=== PATIENT | female | born 1970 | race African-American/Black ===

== ENCOUNTER 2016-12-03 06:32 | Emergency (ER) | payer OTHER ==
[~2016-12-03] VITALS: Ht 172.7 cm; Wt 116.1 kg
[~2016-12-03 06:32] MED LIST: DONNATAL TABS1 TAB PO; NORVASC 5MG TAB5 MG PO; NORVASC10 M1 PO; PERCOCET 325 MG1 TA2 PO; ROXICODONE5 MG PO; TRAMADOL HCL50 M1 PO; TRAMADOL50 MG PO; ZOFRAN ODT4 M1 SL; ZOFRAN ODT4 MG SL
--- NOTE | 2016-12-03 07:17 | ED GI/GU/ABDOMINAL COMPLAINT ---
History of Present Illness General Chief Complaint: Abdominal Pain/Flank Pain Stated Complaint: LT FLANK PAIN,+V Source: patient, old records Exam Limitations: no limitations Vital Signs & Intake/Output Vital Signs & Intake/Output Vital Signs Date Time Temp Pulse Resp B/P B/P Pulse O2 O2 Flow FiO2 Mean Ox Delivery Rate 12/03 0738 Room Air Room Air 12/03 0647 98.6 85 16 148/83 98 Room Air Allergies Coded Allergies: lisinopril (Intermediate, renal failure 07/09/16) NSAIDS (Non-Steroidal Anti-Inflamma (Severe, VOMITING, VIOLENTLY ILL 07/06/16) Reconcile Medications Amlodipine Besylate (Norvasc) 10 MG TABLET 1 TAB PO DAILY Hypertension Tramadol HCl 50 MG TABLET 1 TAB PO Q8P PRN Severe pain Please follow up with PCP Triage Note: 46yo FEMALE TO TRIAGE W/CO LLQ PAIN SINCE TUESDAY. PAIN =SHARP AND CONSTANT SINCE TUE. HX OF OVARIAN CYSTS. STTES SOME VOMITING YESTERDAY Triage Nurses Notes Reviewed? yes ? N Is pt currently ? No HPI: Patient presents with left lower quadrant pain that radiates to her left lower back since Tuesday. The pain is been intermittent since Tuesday however this morning he became constant. Pain is sharp and stabbing in nature. Positive nausea and vomiting. The pain is 10 out of 10. There are no aggravating or mitigating factors. Similar symptoms in the past and she is diagnosed with ovarian cysts. Past History Travel History Traveled to [place] past 21 day No Medical History Any Pertinent Medical History? 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 No Review of Systems Review of Systems Constitutional: Reports: no symptoms. EENTM: Reports: no symptoms. Respiratory: Reports: no symptoms. Cardiovascular: Reports: no symptoms. GI: Reports: see HPI, abdominal pain, nausea, vomiting. Genitourinary: Reports: no symptoms. Musculoskeletal: Reports: see HPI, back pain. Skin: Reports: no symptoms. Neurological/Psychological: Reports: no symptoms. Hematologic/Endocrine: Reports: no symptoms. Immunologic/Allergic: Reports: no symptoms. All Other Systems: Reviewed and Negative Physical Exam Physical Exam General Appearance: well developed/nourished, alert, awake, anxious, moderate distress Head: atraumatic, normal appearance Eyes: Bilateral: PERRL, EOMI. Ears, Nose, Throat, Mouth: hearing grossly normal, DRY MUCUS MEMBRANES Neck: normal inspection, supple, full range of motion Respiratory: normal breath sounds, chest non-tender, no respiratory distress, lungs clear Cardiovascular: regular rate/rhythm, normal peripheral pulses Gastrointestinal: normal bowel sounds, soft, no organomegaly, tenderness (LLQ) Back: NO CVA TENDERNESS Extremities: normal range of motion Neurologic/Psych: no motor/sensory deficits, awake, alert, oriented x 3, normal gait, normal mood/affect Skin: intact, normal color, warm/dry Core Measures ACS in differential dx? No Severe Sepsis Present: No Septic Shock Present: No Progress Differential Diagnosis: ovarian cyst, ovarian torsion, UTI/pyelo Plan of Care: Orders Procedure Date/time Status URINE 12/03 0650 Complete URINALYSIS 12/03 0650 Complete Current Medications Sig/Shayan Start time Last Medication Dose Stop Time Status Admin Diphenhydramine HCl 25 MG ONCE ONE 12/03 0915 UNVr (Benadryl) 12/03 0916 Laboratory Tests 12/03/16 0655: Urine Color YEL, Urine Clarity CLEAR, Urine pH 6.0, Ur Specific [place] >= 1.030 , Urine Protein 30 H, Urine Ketones 15 H, Urine Nitrite NEG, Urine Bilirubin NEG@ICTO, Urine Urobilinogen 0.2, Ur Leukocyte Esterase NEG, Ur Microscopic SEDIMENT EXAMINED, Urine RBC 1-3, Urine WBC RARE, Ur Epithelial Cells RARE, Urine Bacteria FEW H, Urine Mucus MANY H, Urine Hemoglobin SMALL H, Urine Glucose NEG, Urine Test NEGATIVE Diagnostic Imaging: Viewed by Me: Ultrasound. Discussed w/RAD: Ultrasound. Radiology Impression: PATIENT: MINAL CHEN PRESENT AGE: 46 PATIENT ACCOUNT NO: [id number] : 72 LOCATION: [facility] ORDERING PHYSICIAN: ALLIE HULL MD SERVICE DATE: 12/03/16 EXAM TYPE: US - US-TRANSVAGINAL EXAMINATION: US TRANSVAGINAL CLINICAL INFORMATION: Severe left adnexal pain, rule out ovarian torsion COMPARISON: 07/06/2016 TECHNIQUE: Sonographic evaluation of the pelvis was performed transabdominally and transvaginally. FINDINGS: Patient is status post hysterectomy (2006). A subcentimeter nabothian cyst is noted in the cervix. A small amount of fluid is also seen in the cervix. The right ovary measures 3.2 x 2.6 x 2.7 cm (volume 12.0 mL). Doppler evaluation demonstrates normal-appearing flow in the right ovary. There are 2 right ovarian cysts identified. One of these measures 2.7 x 2.5 x 2.3 cm and partially contains echogenic material. The second cyst measures 1.6 x 1.4 x 1.7 cm and has a more simple appearance. The left ovary measures 2.4 x 1.7 x 1.8 cm (volume 3.7 cm). Doppler evaluation demonstrated normal appearing flow in the left ovary. There is suggestion of a complex cyst in the left ovary measuring less than 2 cm in diameter. IMPRESSION: 1. No sonographic findings of ovarian torsion. Suggestion of a complex left ovarian cyst measuring less than 2 cm; attention on follow-up is recommended. 2. Right ovary contains 2 cysts, one of which is partially complex. Sonographic follow-up in 6-8 weeks is advised to assess for resolution. 3. Small amount of fluid in the cervix. Subcentimeter nabothian cysts. DICTATED BY: DAR VARNER MD DATE/TIME DICTATED:12/03/16857 PUBLICATIONS WRITER:YOGI DATE/TIME TRANSCRIBED:12/03/16857 CONFIDENTIAL, DO NOT COPY WITHOUT APPROPRIATE AUTHORIZATION. <Electronically signed in Other Vendor System> SIGNED BY: DAR VARNER MD 12/03/16 09 Initial ED EKG: none Comments: Pain returned after the ultrasound. Patient will be given an additional dose of Dilaudid. Departure Departure Disposition: HOME OR SELF CARE Condition: Stable Clinical Impression Primary Impression: Left ovarian cyst Referrals: GLORIA WILLIAM,CECIL Cristina (PCP/Family) TRENA WILLIAM,ARIEL Additional Instructions: FOLLOW UP WITH DR. ALBRECHT RETURN FOR ANY CONCERNS Departure Forms: Customer Survey General Discharge Information Prescriptions: Current Visit Scripts Hydromorphone HCl (Dilaudid) 1 TAB PO Q6P PRN PAIN #20 TAB
--- NOTE | 2016-12-03 09:05 | ULTRASOUND REPORT ---
EXAMINATION: US TRANSVAGINAL CLINICAL INFORMATION: Severe left adnexal pain, rule out ovarian torsion COMPARISON: 07/06/2016 TECHNIQUE: Sonographic evaluation of the pelvis was performed transabdominally and transvaginally. FINDINGS: Patient is status post hysterectomy (2006). A subcentimeter nabothian cyst is noted in the cervix. A small amount of fluid is also seen in the cervix. The right ovary measures 3.2 x 2.6 x 2.7 cm (volume 12.0 mL). Doppler evaluation demonstrates normal-appearing flow in the right ovary. There are 2 right ovarian cysts identified. One of these measures 2.7 x 2.5 x 2.3 cm and partially contains echogenic material. The second cyst measures 1.6 x 1.4 x 1.7 cm and has a more simple appearance. The left ovary measures 2.4 x 1.7 x 1.8 cm (volume 3.7 cm). Doppler evaluation demonstrated normal appearing flow in the left ovary. There is suggestion of a complex cyst in the left ovary measuring less than 2 cm in diameter. IMPRESSION: 1. No sonographic findings of ovarian torsion. Suggestion of a complex left ovarian cyst measuring less than 2 cm; attention on follow-up is recommended. 2. Right ovary contains 2 cysts, one of which is partially complex. Sonographic follow-up in 6-8 weeks is advised to assess for resolution. 3. Small amount of fluid in the cervix. Subcentimeter nabothian cysts.
[2016-12-03 09:14] VITALS: BP 164/98
[2016-12-03] MEDS ORDERED: DILAUDID2 M1 PO (09:14)
== END 2016-12-03 09:49 ==
LOC: ERH 06:32
DX: N83.202 Unspecified ovarian cyst, left side (principal)
CPT/HCPCS: 81001; 81025; 96361; 96374; 96375; 96376; J1200

== ENCOUNTER 2017-07-26 11:43 | Emergency (ER) | payer OTHER ==
[~2017-07-26] VITALS: Ht 172.7 cm; Wt 124.7 kg
[~2017-07-26 11:43] MED LIST changes: +DILAUDID2 M1 PO
--- NOTE | 2017-07-26 12:06 | ED GI/GU/ABDOMINAL COMPLAINT ---
History of Present Illness General Chief Complaint: Abdominal Pain/Flank Pain Stated Complaint: ABD PAIN+N Source: patient, old records Exam Limitations: no limitations Vital Signs & Intake/Output Vital Signs & Intake/Output ED Intake and Output 07/27 0000 07/26 1200 Intake Total 1000 Output Total Balance 1000 Intake, IV 1000 Patient 275 lb Weight Weight Reported by Patient Measurement Method Allergies Coded Allergies: lisinopril (Intermediate, renal failure 07/09/16) NSAIDS (Non-Steroidal Anti-Inflamma (Severe, VOMITING, VIOLENTLY ILL 07/06/16) Reconcile Medications Amlodipine Besylate (Norvasc) 10 MG TABLET 1 TAB PO DAILY Hypertension Hydromorphone HCl (Dilaudid) 2 MG TABLET 1 TAB PO BIDP PRN pain Hydromorphone HCl (Dilaudid) 2 MG TABLET 1 TAB PO Q6P PRN PAIN Ondansetron (Zofran Odt) 4 MG TAB.RAPDIS 1 TAB SL TID PRN nausea Tramadol HCl 50 MG TABLET 1 TAB PO Q8P PRN Severe pain Please follow up with PCP Triage Note: PT TO ED C/O ABD PAIN ON AND OFF X 1 WEEK. STARTED VOMITING THIS AM. ACTIVELY VOMITING IN TRIAGE. Triage Nurses Notes Reviewed? yes ? n Is pt currently ? No Onset: Abrupt Duration: week(s): (1), constant Timing: recent history Quality/Severity: moderate, sharpness, stabbing Severity Numbers: 10 Location: generalized abdomen Radiation: no radiation Activities at Onset: none Prior Abdominal Problems: similar symptoms No Modifying Factors: none Associated Symptoms: denies HPI: 47 year old female with history of ovarian cyst, HTN, anxiety, chronic abdominal pain presents to the ER for evaluation complaining of 10 out of 10 sharp severe nonradiating abdominal pain for the past 1 week and she has not sought care for the symptoms until today secondary to nausea and vomiting. Patient was previously on tramadol for chronic pain which she states she has not had. She denies hematemesis diarrhea, no sick contacts no chest pain no back pain no urinary urgency frequency dysuria. She is not taken anything for her symptoms today.. The patient states she's been worked up for this pain in the past with no known cause identified her history is significant for cholecystectomy and ovarian cyst removal and . On my evaluation patient is stating that the only thing that works for her pain is IV Dilaudid. (Luis Alberto Paul) Past History Travel History Traveled to [place] past 21 day No Medical History Any Pertinent Medical History? 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 No (Luis Alberto Paul) Review of Systems Review of Systems Constitutional: Reports: see HPI. Comments Review of systems: See HPI, All other systems negative. Constitutional, no chills no fever, HEENT: no sore throat no congestion Cardiovascular: No chest pain Skin: no rashes, no change in skin Respiratory: No dyspnea no cough no sputum GI: nausea vomiting, no diarrhea, no bloating/constipation : No dysuria No hematuria, no frequency Muscle skeletal: No joint pain, no back pain, no neck pain, Neurologic: , no headache Heme/endocrine: No bruising Immunology: No lymphadenopathy (Luis Alberto Paul) Physical Exam Physical Exam General Appearance: well developed/nourished, alert, awake, diaphoretic Gastrointestinal: soft, tenderness Comments: Well-developed well-nourished person in no acute distress HEENT: Normal EENT exam; PERRL, EOMI, HEAD is atraumatic. moist mucous membranes. Neck: Supple, normal range of motion Back: Nontender, no CVA tenderness. Full range of motion Cardiovascular: Regular rate and rhythms no murmurs rubs Respiratory: No respiratory distress. Patient speaking in full complete sentences. Breath sounds clear to auscultation bilaterally: NO W/R/R Abdomen: Soft, diffuse tenderness, nondistended, no appreciable organomegaly. Normal bowel sounds. No rebound/guarding Extremity: No edema, full range of motion of extremities Neuro: Alert oriented x3, motor sensory normal,There were no obvious focal neurologic abnormalities. Skin: No appreciable rash on exposed skin, skin is warm and dry. Psych: Mood and affect is normal, memory and judgment is normal. Core Measures ACS in differential dx? No Sepsis Present: No Sepsis Focused Exam Completed? No (Charlette CANO,Luis Alberto) Progress Differential Diagnosis: bowel obstruction, colon cancer, inflamm bowel dis, intrauterine , ovarian cyst, peptic ulcer, PUD/GERD, SBO, threatened AB Plan of Care: Orders Procedure Date/time Status URINALYSIS 07/26 1209 Active LIPASE 07/26 1147 Complete HUMAN BETA HCG SCREEN 07/26 1147 Complete COMPREHENSIVE METABOLIC PANEL 07/26 1147 Complete CBC WITHOUT DIFFERENTIAL 07/26 1147 Complete Current Medications Sig/Shayan Start time Last Medication Dose Stop Time Status Admin Hydromorphone HCl 0.5 MG ONCE ONE 07/26 1415 CAN (Dilaudid) 07/26 1416 Laboratory Tests 07/26/17 1310: Anion Gap 13, Estimated GFR > 60, BUN/Creatinine Ratio 22.2, Glucose 108 H, Calcium 10.3 H, Total Bilirubin 0.5, AST 33, ALT 40, Alkaline Phosphatase 91, Total Protein 8.2, Albumin 4.6, Globulin 3.6, Albumin/Globulin Ratio 1.3, Lipase 116, Total Beta HCG NEGATIVE, CBC w Diff NO MAN DIFF REQ, RBC 5.21, MCV 89.7, MCH 29.3, RDW 14.1, MPV 9.6, Gran % 76.3 H, Lymphocytes % 17.1 L, Monocytes % 5.1, Eosinophils % 1.0, Basophils % 0.5, Absolute Granulocytes 7.9 H, Absolute Lymphocytes 1.8, Absolute Monocytes 0.5, Absolute Eosinophils 0.1, Absolute Basophils 0, PUBS MCHC 32.7 L Patient medicated with Dilaudid 1 mg IV old records reviewed Zofran 4 IV labs ordered CAT scan ordered 1245 I was called to the patient's bedside as she is demanding more pain medications she states that she needs more than just 1 mg of Dilaudid I discussed with her that she just received this medicine less than 15 minutes ago and it is not safe to get this medication. She has a strong smell of marijuana on her she is pacing throughout the emergency room demanding for pain medicine she pulled her IV out 1310- patient pacing up and down the hallway demanding more pain medicine case and resutls d/w dr goode- patient reports that she has had this pain ongoing for many years she's had the most recent episode the past week. She's had no further episodes of vomiting after being medicated with Zofran she is again demanding more pain medicine which time I offered her other nonopiate medications including IV Tylenol tramadol which she is refusing she is stating that she needs more pain medication at a long discussion with her that the scan results of lab work and I advised that she have close follow-up with her primary care physician. The patient is upset with discharge. Discussed with her that there is nothing emergent going on that I can see today nothing requiring admission patient ambulatory with steady gait upon discharge Diagnostic Imaging: Viewed by Me: CT Scan. Discussed w/RAD: CT Scan. Radiology Impression: PATIENT: MINAL CHEN PRESENT AGE: 47 PATIENT ACCOUNT NO: [id number] : 72 LOCATION: [facility] ORDERING PHYSICIAN: Luis Alberto CANO SERVICE DATE: 07/26/17 EXAM TYPE: CAT - CT ABD & PELVIS W/O IV CONTRAS EXAMINATION: CT ABDOMEN AND PELVIS WITHOUT CONTRAST CLINICAL INFORMATION: Left-sided abdominal pain. Nausea and vomiting. COMPARISON: CT of the abdomen and pelvis from 05/26/2014 TECHNIQUE: Multidetector volumetric imaging was performed from the superior aspect of the liver through the pubic symphysis. Sagittal and coronal reformatted images were obtained on the technologist's workstation. DLP: 1100 mGy-cm FINDINGS: LUNG BASES: The visualized lung bases are unremarkable. LIVER, GALLBLADDER, AND BILIARY TREE: The liver is normal in size, shape, and attenuation. No focal hepatic lesion or biliary ductal dilatation is present. Cholecystectomy. PANCREAS: Unremarkable. SPLEEN: Unremarkable. ADRENAL GLANDS: Unremarkable. KIDNEYS AND URETERS: The kidneys are normal in size, shape, and attenuation. No hydronephrosis, hydroureter, or calculi seen. No perinephric stranding. BLADDER: Unremarkable. GASTROINTESTINAL TRACT: The stomach is grossly unremarkable. The small bowel is normal in caliber without obstruction. No colonic wall thickening or inflammatory changes. No free air or free fluid. ABDOMINAL WALL: No significant hernia is appreciated. LYMPH NODES: Normal. VASCULAR: Normal caliber aorta with mild atherosclerotic calcifications. PELVIC VISCERA: The uterus is not seen. No adnexal mass. OSSEOUS STRUCTURES: No acute or suspicious osseous abnormality. IMPRESSION: No acute findings of the abdomen or pelvis. No acute inflammatory changes. No hydronephrosis or nephrolithiasis. DICTATED BY: Max Daugherty MD DATE/TIME DICTATED:07/26/171354 FABRICATION ENGINEER: YOGI DATE/TIME TRANSCRIBED:07/26/171354 CONFIDENTIAL, DO NOT COPY WITHOUT APPROPRIATE AUTHORIZATION. <Electronically signed in Other Vendor System> SIGNED BY: Dat WILLIAM,Max 07/26/17 1405 Initial ED EKG: none (Luis Alberto Paul) Departure Departure Time of Disposition: 1410 Disposition: HOME OR SELF CARE Condition: Stable Clinical Impression Primary Impression: Chronic abdominal pain Referrals: Vin Holbrook MD (PCP/Family) Additional Instructions: dilaudid for pain. zofran for nausea. bland diet, clear liquids, follow up with your pmd this week Departure Forms: Customer Survey General Discharge Information Prescriptions: Current Visit Scripts Hydromorphone HCl (Dilaudid) 1 TAB PO BIDP PRN pain #10 TAB Ondansetron (Zofran Odt) 1 TAB SL TID PRN nausea #10 TAB (Luis Alberto Paul) PA/GLOBAL SALES DIRECTOR Co-Sign Statement Statement: ED Attending supervision documentation- I saw and evaluated the patient. I have also reviewed all the pertinent lab results and diagnostic results. I agree with the findings and the plan of care as documented in the PA's/GLOBAL SALES DIRECTOR's documentation. x I have reviewed the ED Record and agree with the PA's/GLOBAL SALES DIRECTOR's documentation. [] Additions or exceptions (if any) to the PAs/GLOBAL SALES DIRECTOR's note and plan are summarized below: [] (Katiuska WILLIAM,Tomasz)
[2017-07-26 13:20] LABS: ABSOLUTE BASOPHIL COUNT 0 /CUMM (0.0-0.2); ABSOLUTE EOSINOPHIL COUNT 0.1 /CUMM (0.0-0.7); ABSOLUTE GRANULOCYTE CT 7.9 /CUMM (1.4-6.5); ABSOLUTE LYMPH COUNT 1.8 /CUMM (1.2-3.4); ABSOLUTE MONOCYTE COUNT 0.5 /CUMM (0.10-0.60); BASOPHIL % 0.5 % (0.0-2.0); GRANULOCYTE % 76.3 % (42.2-75.2); HEMATOCRIT 46.7 % (37-47); MEAN CORPUSCULAR HGB 29.3 PG (27.0-31.0); MEAN CORPUSCULAR HGB CONC 32.7 G/DL (33.0-37.0); MEAN CORPUSCULAR VOLUME 89.7 FL (81.0-99.0); MEAN PLATELET VOLUME 9.6 FL (7.4-10.4); PLATELET COUNT 198 /CUMM (130-400); RBC DISTRIBUTION WIDTH 14.1 % (11.5-14.5); RED BLOOD CELL CT 5.21 /CUMM (4.20-5.40); WHITE BLOOD CELL COUNT 10.4 /CUMM (4.8-10.8)
--- NOTE | 2017-07-26 14:05 | CT SCAN REPORT ---
EXAMINATION: CT ABDOMEN AND PELVIS WITHOUT CONTRAST CLINICAL INFORMATION: Left-sided abdominal pain. Nausea and vomiting. COMPARISON: CT of the abdomen and pelvis from 05/26/2014 TECHNIQUE: Multidetector volumetric imaging was performed from the superior aspect of the liver through the pubic symphysis. Sagittal and coronal reformatted images were obtained on the technologist's workstation. DLP: 1100 mGy-cm FINDINGS: LUNG BASES: The visualized lung bases are unremarkable. LIVER, GALLBLADDER, AND BILIARY TREE: The liver is normal in size, shape, and attenuation. No focal hepatic lesion or biliary ductal dilatation is present. Cholecystectomy. PANCREAS: Unremarkable. SPLEEN: Unremarkable. ADRENAL GLANDS: Unremarkable. KIDNEYS AND URETERS: The kidneys are normal in size, shape, and attenuation. No hydronephrosis, hydroureter, or calculi seen. No perinephric stranding. BLADDER: Unremarkable. GASTROINTESTINAL TRACT: The stomach is grossly unremarkable. The small bowel is normal in caliber without obstruction. No colonic wall thickening or inflammatory changes. No free air or free fluid. ABDOMINAL WALL: No significant hernia is appreciated. LYMPH NODES: Normal. VASCULAR: Normal caliber aorta with mild atherosclerotic calcifications. PELVIC VISCERA: The uterus is not seen. No adnexal mass. OSSEOUS STRUCTURES: No acute or suspicious osseous abnormality. IMPRESSION: No acute findings of the abdomen or pelvis. No acute inflammatory changes. No hydronephrosis or nephrolithiasis.
[2017-07-26] MEDS ORDERED: ZOFRAN ODT4 M1 SL (14:12)
[2017-07-26] MEDS ORDERED: DILAUDID2 M1 PO (14:12)
[2017-07-26 14:34] VITALS: BP 186/118
[2017-07-28] MEDS ORDERED: BENTYL10 M1 PO (07:49)
== END 2017-07-26 14:35 ==
LOC: ERH 11:43
PROVIDERS: Physician Assistant Medical
DX: R10.84 Generalized abdominal pain (principal)
CPT/HCPCS: 74176; 96374; 96375; J2405